=== PATIENT | female | born 1985 | race Two or more races ===

== ENCOUNTER 2024-09-25 16:11 | Emergency (ER) | payer MEDICAID, OTHER ==
[~2024-09-25] VITALS: Ht 152.4 cm; Wt 112.3 kg
[2024-09-25 17:05] LABS: Urine Amorphous Crystal FEW /hpf (None Seen); Urine Bacteria FEW /hpf (None Seen); Urine Blood 3+ /uL (Negative); Urine Clarity Clear (Clear); Urine Color Light-Orange (Yellow); Urine Hyaline Cast FEW /lpf (0 - 2); Urine Mucus FEW (None Seen); Urine Protein, UAD TRACE (Negative); Urine Specific Gravity 1.021 (1.001-1.035); Urine Urobilinogen Normal (Negative); Urine WBC 9 /hpf (0 - 5); Urine pH 5.5 (5.0-9.0)
--- NOTE | 2024-09-25 17:27 | DVH ---
OB ULTRASOUND <14 WEEKS: HISTORY: Vaginal bleed TECHNIQUE: Multiple real-time grayscale sonographic images of the pelvis with duplex Doppler color f low, spectral and M-mode analysis. TRANSDUCERS: Transabdominal FINDINGS: The uterus measures 12.6 x 9.3 x 5.7 cm. The cervix is not well-visualized. Right ovary measures 3.9 x 2.2 x 2.2 cm with normal Doppler color flow. There is a thick-walled cyst ic structure with ring of fire type vascularity within the right ovary measuring up to 2.6 cm, likely corpus luteum cyst. Left ovary measures 2.3 x 1.3 x 2.5 cm with normal Doppler color flow IUP single live fetus at 11 weeks 4 days average ultrasound age based on mean crown-rump length of 5. 88 cm and average gestational sac size of 4.84 cm heart rate detected at 175 beats per minute. Yolk sac not definitively identified, however early placental formation is seen. Amniotic fluid subj ectively within normal limits. Ariana-gestational space: Unremarkable IMPRESSION: 1. IUP single live fetus 11 weeks 4 days AUA corresponding to an JAQUAN of 04/12/2025. HS:Y
[2024-09-25 17:56] LABS: Basophils # (auto) 0.1 10 ^3/uL (0-0.2); Eosinophils # (auto) 0.1 10 ^3/uL (0-0.8); Eosinophils % (auto) 0.7 % (0.0-7.0); Hematocrit 36.5 % (36.0-46.0); Hemoglobin 12.3 g/dL (12.2-16.2); Lymphocytes # (auto) 2.3 10 ^3/uL (0.4-5.4); Lymphocytes % (auto) 19.8 % (10.0-50.0); Mean Corpuscular Hemoglobin 29.7 pg (28.0-32.0); Mean Corpuscular Hgb Conc. 33.6 g/dL (32.0-36.0); Mean Corpuscular Volume 88.3 fL (80.0-100.0); Monocytes # (auto) 0.4 10 ^3/uL (0-1.3); Monocytes % (auto) 3.5 % (0.0-12.0); Neutrophils # (auto) 8.6 10 ^3/uL (1.6-8.6); Nucleated Red Blood Cells % 0.1 %; Platelet Count (auto) 254 10^3/uL (140-450); Red Blood Cells 4.13 10^6/uL (4.0-5.20); Red Cell Distribution Width 15.4 % (11.8-14.3); White Blood Cell 11.5 10^3/uL (4.4-10.8)
[2024-09-25 17:58] LABS: Chloride 106 mmol/L (98-107); Potassium 3.6 mmol/L (3.5-5.1); Sodium 140 mmol/L (136-145)
[2024-09-25 17:59] LABS: Anion Gap 10 (5-15); Calcium 10.2 mg/dL (8.7-10.4); Carbon Dioxide 24 mmol/L (20-31)
[2024-09-25 18:04] LABS: BUN/Creatinine Ratio 9.5 (10.0-20.0); Blood Urea Nitrogen 7 mg/dL (9-23); Glucose 117 mg/dL (74-106)
[2024-09-25] MEDS ORDERED: NITR-87 PO (19:15)
--- NOTE | 2024-09-25 19:16 | ED.PDOC ---
MULTI SENSOR OPERATOR HPI Comments This patient is a pleasant but severely morbidly obese 39-year-old female who arrives to the ED today for concerns of vaginal bleeding that began today and has continued throughout. Patient states she is approximately 11 weeks . Patient is with a prior miscarriage. Patient denies any fever nausea or vomiting. Patient denies any traumatic events. Patient will need denies any pain concerns. Patient was mildly hypertensive on arrival. Chief Complaint: Vaginal Bleed Time Seen by MD: 16:25 Reviewed Notes: Nurses Notes Allergies: Coded Allergies: NO KNOWN ALLERGIES (Unverified , 09/25/24) Information Source: Patient Mode of Arrival: Ambulatory Timing: Hours Severity: Moderate Bleeding Quality: Bright Red Onset Of Mass/Bleeding: Spontaneous Past Medical History PAST MEDICAL HISTORY: Denies Past Medical History (Other): Patient states she is currently 11 weeks . Surgical History: Denies all surgeries TRANSMISSION LINE ENGINEER History: No Pertinent TRANSMISSION LINE ENGINEER History Family History Family History: Reviewed,noncontributory to illness, No family hx of Cancer, No family hx of DM, No family hx of Heart chio, No family hx of HTN, No family hx ofKidney chio, No family hx of Liver chio, No family hx of Lung chio, No family hx of Stroke Social History Smoker: Non-Smoker Alcohol: Denies ETOH Use Drugs: Denies Drug Use Lives In: Home Constitutional: denies: chills, diaphoresis, fatigue, fever, malaise, sweats, weakness, others EENTM: denies: blurred vision, double vision, ear bleeding, ear discharge, ear drainage, ear pain, ear ringing, eye pain, eye redness, hearing loss, mouth pain, mouth swelling, nasal discharge, nose bleeding, nose congestion, nose pain, photophobia, tearing, throat pain, throat swelling, voice changes, others Respiratory: denies: cough, hemoptysis, orthopnea, SOB at rest, shortness of breath, SOB with excertion, stridor, wheezing, others Cardiovascular: denies: chest pain, dizzy spells, diaphoresis, Dyspnea on exertion, edema, irregular heart beat, left arm pain, lightheadedness, palpitations, PND, syncope, others Gastrointestinal: denies: abdomen distended, abdominal pain, blood streaked bowels, constipated, diarrhea, dysphagia, difficulty swallowing, hematemesis, melena, nausea, poor appetite, poor fluid intake, rectal bleeding, rectal pain, vomiting, others Genitourinary: reports: abnormal vagina bleeding; denies: burning, dyspareunia, dysuria, flank pain, frequency, hematuria, incontinence, pain, , vagina discharge, urgency, others Neurological: denies: dizziness, fainting, headache, left sided numbness, left sided weakness, numbness, paresthesia, pre-existing deficit, right sided numbness, right sided weakness, seizure, speech problems, tingling, tremors, weakness, others Musculoskeletal: denies: back pain, gout, joint pain, joint swelling, muscle pain, muscle stiffness, neck pain, others Integumetry: denies: bruises, change in color, change in hair/nails, dryness, laceration, lesions, lumps, rash, wounds, others Allergic/Immunocompromised: denies: Difficulty Healing, Frequent Infections, Hives, Itching, others Hematologic/Lymphatic: denies: anemia, blood clots, easy bleeding, easy bruising, swollen glands, others Endocrine: denies: excessive hunger, excessive sweating, excessive thirst, excessive urination, flushing, intolerance to cold, intolerance to heat, unexplained weight gain, unexplained weight loss, others Psychiatric: denies: anxiety, bipolar disorder, depression, hopeless, panic disorder, schizophrenia, sleepless, suicidal, others Physical Exam General Appearance: Mild Distress (Due to anxiety related to the vaginal bleeding concerns.), Obese HEENT: Normal ENT Inspection, Pharynx Normal, TMs Normal Neck: Full Range of Motion, Non-Tender, Normal, Normal Inspection Respiratory: Chest Non-Tender, Lungs Clear, No Accessory Muscle Use, No Respiratory Distress, Normal Breath Sounds Cardiovascular: No Edema, No JVD, No Murmur, No Gallop, Normal Peripheral Pulses, Regular Rate/Rhythm Breast Exam: Deferred Gastrointestinal: No Organomegaly, Non Tender, No Pulsatile Mass, Normal Bowel Sounds, Soft Genitalia: Deferred Pelvic: Deferred Rectal: Deferred Extremities: No calf tenderness, Normal capillary refill, Normal inspection, Normal range of motion, Non-tender, No pedal edema Neurologic: Alert, harvesting manager II-XII nml as Tested, No Motor Deficits, Normal Affect, Normal Mood, No Sensory Deficits Cerebellar Function: Normal Reflexes: Normal Skin: Dry, Normal Color, Warm Lymphatic: No Adenopathy Was a procedure done? Was a procedure done?: No Differential Diagnosis (TRANSMISSION LINE ENGINEER) Vaginal Bleeding: - Complete, - Inevitable, - Mi ssed, - Threatened, Menorrhagia, Menometrorrhagia, Menstrual Bleeding, Myomatous Uterus X-Ray, Labs, Meds, VS Vital Signs Date Time Temp Pulse Resp B/P (MAP) Pulse Ox O2 Delivery O2 Flow Rate FiO2 09/25/24 16:34 98.5 87 16 153/86 (108) 98 Lab Test 09/25/24 17:20 09/25/24 16:31 Range/Units White Blood Count 11.5 H 4.4-10.8 10^3/uL Red Blood Count 4.13 4.0-5.20 10^6/uL Hemoglobin 12.3 12.2-16.2 g/dL Hematocrit 36.5 36.0-46.0 % Mean Corpuscular Volume 88.3 80.0-100.0 fL Mean Corpuscular Hemoglobin 29.7 28.0-32.0 pg Mean Corpuscular Hemoglobin Concent 33.6 32.0-36.0 g/dL Red Cell Distribution Width 15.4 H 11.8-14.3 % Platelet Count 254 140-450 10^3/uL Mean Platelet Volume 9.4 6.9-10.8 fL Neutrophils (%) (Auto) 75.0 37.0-80.0 % Lymphocytes (%) (Auto) 19.8 10.0-50.0 % Monocytes (%) (Auto) 3.5 0.0-12.0 % Eosinophils (%) (Auto) 0.7 0.0-7.0 % Basophils (%) (Auto) 1.0 0.0-2.0 % Neutrophils # (Auto) 8.6 1.6-8.6 10 ^3/uL Lymphocytes # (Auto) 2.3 0.4-5.4 10 ^3/uL Monocytes # (Auto) 0.4 0-1.3 10 ^3/uL Eosinophils # (Auto) 0.1 0-0.8 10 ^3/uL Basophils # (Auto) 0.1 0-0.2 10 ^3/uL Nucleated Red Blood Cells 0.1 % Sodium Level 140 136-145 mmol/L Potassium Level 3.6 3.5-5.1 mmol/L Chloride Level 106 98-107 mmol/L Carbon Dioxide Level 24 20-31 mmol/L Anion Gap 10 5-15 Blood Urea Nitrogen 7 L 9-23 mg/dL Creatinine 0.74 0.550-1.02 mg/dL Glomerular Filtration Rate Calc 107 >90 mL/min BUN/Creatinine Ratio 9.5 L 10.0-20.0 Serum Glucose 117 H 74-106 mg/dL Calcium Level 10.2 8.7-10.4 mg/dL Beta HCG, Quantitative 61189.3 H 1.5-4.2 mIU/mL Urine Color Light-orange Yellow Urine Clarity Clear Clear Urine pH 5.5 5.0-9.0 Urine Specific Jackson 1.021 1.001-1.035 Urine Protein Trace H Negative Urine Ketones Negative Negative Urine Blood 3+ H Negative /uL Urine Nitrite Negative Negative Urine Bilirubin Negative Negative Urine Urobilinogen Normal Negative mg/dL Urine Leukocyte Esterase 1+ Negative /uL Urine RBC 2 0 - 4 /hpf Urine WBC 9 0 - 5 /hpf Urine Squamous Epithelial Cells Few <5 /hpf Urine Amorphous Crystals Few None Seen /hpf Urine Bacteria Few H None Seen /hpf Urine Hyaline Casts Few 0 - 2 /lpf Urine Mucus Few None Seen Urine Glucose Normal Normal mg/dL X-Ray, Labs, Meds, VS Comment All studies performed in the ED were reviewed by me personally. Patient appears to have a small urinary tract infection. Serum laboratories were [place]remark[place] [address]. Ultrasound confirmed and 11 months viable . Advised patient to follow up with her digital director for conversation is related to her vaginal bleeding with in the 1st trimester. Advised patient utilize antibiotics as directed until completion. Time of 1ST Reevaluation: 19:14 Reevaluation 1ST: Improved Consultation: PCP, senior software quality analyst Patient Education/Counseling: Diagnosis, Treatment Family Education/Counseling: Diagnosis, Treatment Departure 1 Departure Time of Disposition: 19:14 Impression: Primary Impression: Vaginal bleeding before 22 weeks gestation Additional Impression: UTI (urinary tract infection) Disposition: HOME / SELF CARE / HOMELESS Condition: Stable Additional Instructions: Advised patient utilize antibiotics as directed until completion and additionally, patient should follow up with digital director for conversation is related to today's visit and management of her current viable . e-Prescriptions Nitrofurantoin Monohydrate Mac (Macrobid) 100 Mg Cap 100 MG PO BID for 5 Days, #10 CAP Prov: GRACY,NYDIA B PAC 09/25/24 Discharged With: Self, Friend Critical Care Note Critical Care Time?: No Stability Stability form required: No Heart Score Heart Score: Heart Score Response (Comments) Value History N/A 0 EKG N/A 0 Age N/A 0 Risk Factors N/A 0 Troponin N/A 0 Total 0 NYDIA DUBOSE PAC Sep 25, 2024 19:16
[2024-09-25] MEDS: NITROFURANTOIN 100 mg CAP PO ONE (19:52)
[2024-09-25 19:57] VITALS: BP 145/76; PULSE 81; RESP 16; TEMP 98.7; O2SAT 99
== END 2024-09-25 20:00 | disposition home or self-care (01) ==
LOC: ER 16:11
DX: O23.41 Unspecified infection of urinary tract in pregnancy, first trimester (principal); R10.2 Pelvic and perineal pain; O10.911 Unspecified pre-existing hypertension complicating pregnancy, first trimester; N39.0 Urinary tract infection, site not specified; Z3A.11 11 weeks gestation of pregnancy
CPT/HCPCS: 36415; 76801; 80048; 81001; 84702; 85025